=== PATIENT | male | born 1980 | race Two or more races ===

== ENCOUNTER 2020-01-30 02:26 | Emergency (ER) | payer BC ==
[~2020-01-30] VITALS: Ht 170.2 cm; Wt 68.0 kg
[2020-01-30 02:40] VITALS: BP 133/88
--- NOTE | 2020-01-30 02:40 | NUR ---
ED Nurse Note: Patient walked into ED from home for c/o fever onset yesterday. Patient states temperature was highest at 102F at home, he has been managing fever with tylenol. No fever in ED at this time. He also reports chills, SOB and chest tightness. No active pain at the moment. He is breathing normal and unlabored, does not appear to be in any respiratory distress. He can speak in full sentences. AAOX4. Patient states he was exposed to COVID-19 by family at home and had a test taken on 01/28/20; pending results.
[2020-01-30] MEDS ORDERED: ALBUTEROL SULF8.5 G1 INH (02:48)
--- NOTE | 2020-01-30 02:50 | Emergency Room Report ---
History of Present Illness General Chief Complaint: Fever Source: Patient Present Illness HPI 39-year-old male with no past medical history. He presents with chief complaint of shortness of breath and chest tightness. Onset an hour prior to arrival. Several members of the family are positive with Covid. He had testing done on Wednesday. Results are still pending. He had a low-grade fever today. He has no coughing or congestion. He has shortness of breath and tightness in his chest prior to arrival. Nothing made it better. Nothing made it worse. Has not take anything for this. Allergies: Coded Allergies: No Known Allergies (Unverified , 01/30/20) COVID-19 Screening Contact w/high risk pt: Yes Experienced COVID-19 symptoms?: Yes COVID-19 Testing performed RESERVATIONS AGENT: Yes COVID-19 Screening: PUI COVID-19 COVID-19 Testing Source: [email or web address] 01/28/20 Patient History Past Medical History: none, see triage record, old chart reviewed Past Surgical History: none Pertinent Family History: none Social History: Denies: smoking Immunizations: other Reviewed Nursing Documentation: PMH: Agreed; PSxH: Agreed Nursing Documentation-PMH Past Medical History: No Stated History Review of Systems Constitutional: Reports: fever Eye: Denies: eye pain, blurred vision ENT: Denies: ear pain, nose congestion, throat swelling Respiratory: Reports: shortness of breath; Denies: cough Cardiovascular: Reports: chest pain; Denies: palpitations Gastrointestinal: Denies: abdominal pain, diarrhea, nausea, vomiting Musculoskeletal: Denies: back pain, joint pain Skin: Denies: rash Neurological: Denies: headache, numbness Endocrine: Denies: increased thirst, increased urine Hematologic/Lymphatic: Denies: easy bruising All Other Systems: negative except mentioned in HPI Physical Exam Vital Signs Date Time Temp Pulse Resp B/P (MAP) Pulse Ox O2 Delivery O2 Flow Rate FiO2 01/30/20 02:40 97.5 64 12 133/88 (103) 99 Room Air Vitals normal Sp02 EP Interpretation: reviewed, normal General Appearance: well appearing, no apparent distress, alert Head: normocephalic, atraumatic Eyes: bilateral eye PERRL, bilateral eye EOMI ENT: hearing grossly normal, normal pharynx Neck: full range of motion, supple, no meningismus Respiratory: chest non-tender, lungs clear, normal breath sounds Cardiovascular #1: regular rate, rhythm, no murmur Gastrointestinal: normal bowel sounds, non tender, no mass, no organomegaly, no bruit, non-distended Musculoskeletal: back normal, normal range of motion, gait/station normal Psychiatric: mood/affect normal Medical Decision Making Diagnostic Impression: Primary Impression: Suspected COVID-19 virus infection ER Course Patient presents with shortness of breath fever. Multiple family members are sick with Covid. Suspect that he has Covid infection also. He already had testing done but results pending. He is in no respiratory distress. Oxygenation 100%. No evidence of ACS, PE, dissection to name a few. Will discharge home with symptomatic care. He does not meet criteria for dexamethasone. EKG Diagnostic Results Troponin ordered: No - Noncardiac Rate: normal Rhythm: NSR ST Segments: no acute changes Rhythm Strip Diag. Results EP Interpretation: yes Rate: 69 Rhythm: NSR, no PVC's, no ectopy Chest X-Ray Diagnostic Results Chest X-Ray Diagnostic Results : Chest X-Ray Ordered: Yes # of Views/Limited/Complete: 1 View Indication: Shortness of Breath EP Interpretation: Yes Interpretation: no consolidation, no effusion, no pneumothorax, no acute cardiopulmonary disease Impression: No acute disease Electronically Signed by: Mynor Mcdonald MD Last Vital Signs Date Time Temp Pulse Resp B/P (MAP) Pulse Ox O2 Delivery O2 Flow Rate FiO2 01/30/20 02:40 97.5 64 12 133/88 (103) 99 Room Air Status: unchanged Disposition: HOME, SELF-CARE Condition: Stable Scripts Albuterol Sulfate* (Albuterol Sulfate Hfa*) 8.5 Gm Hfa.aer.ad 2 PUFF INH Q4H, #1 INH Prov: Mynor Mcdonald MD 01/30/20 Referrals: NOT CHOSEN IPA/,REFERRING (PCP) Additional Instructions: Practice social distancing and wearing mask. Good handwashing. Consider yourself with Covid infection until proven otherwise. I recommend taking zinc, vitamin D, and vitamin C. Use inhaler as needed. Follow-up with your doctor in 7 days. Return if symptoms worsen. Mynor Mcdonald MD Jan 30, 2020 02:50
[2020-01-30 03:40] VITALS: BP 125/88
--- NOTE | 2020-01-30 03:40 | NUR ---
ER DISCHARGE NOTE: Patient is cleared to be discharged per ERMD, pt is aox4, on room air, with stable vital signs. pt was given dc and prescription instructions, pt was able to verbalize understanding, pt id band removed. pt is able to ambulate with steady gait. pt took all belongings.
--- NOTE | 2020-01-30 16:31 | Diagnostic Imaging Report ---
Indication: Shortness of breath Technique: One view of the chest Comparison: none Findings: Lungs and pleural spaces are clear. Heart size is normal. Impression: No acute process
== END 2020-01-30 03:40 | disposition home or self-care (01) ==
LOC: EMR 02:42
DX: R06.02 Shortness of breath (principal); R07.89 Other chest pain; R50.9 Fever, unspecified; Z20.828 Contact with and (suspected) exposure to other viral communicable diseases
CPT/HCPCS: 71045; 93005; 99283